=== PATIENT | female | born 1990 | race African-American/Black ===

== ENCOUNTER 2018-11-06 17:59 | Emergency (ER) | payer OTHER ==
[2018-11-06] MEDS ORDERED: DIPHTH,PERTUSS(ACELL),TET 0.5 ML DISP.SYRIN IM ONE ×3 (18:02→18:40)
--- NOTE | 2018-11-06 18:02 | PDOC ---
Rapid Medical Evaluation Time Seen by Provider: 11/06/18 18:01 Medical Evaluation: Allergies Allergy/AdvReac Type Severity Reaction Status Date / Time No Known Allergies Allergy Verified 03/02/14 19:10 11/06/18 18:01 HPI: laceration L middle finger PE: about 1 cm on the volar aspect of the finger. ORDERS: bostrix Discharge Disposition - Diagnosis Laceration - Referrals - Patient Instructions - Post Discharge Activity
[2018-11-06 18:09] VITALS: BP 114/69; PULSE 107; TEMP 98.4; BMI 28.3
--- NOTE | 2018-11-06 19:05 | PDOC ---
History of Present Illness - General Chief Complaint: Injury Stated Complaint: FINGER LACERATION Time Seen by Provider: 11/06/18 18:01 History Source: Patient Exam Limitations: Clinical Condition - History of Present Illness Initial Comments: 11/06/18 19:36 Patient with no significant past medical history present with complaint of laceration to tip of left middle finger status post cooking and accidentally cutting the finger with a knife. Patient does not recall last tetanus vaccine Timing/Duration: 1-3 hours Past History - Past Medical History Allergies/Adverse Reactions: Allergies Allergy/AdvReac Type Severity Reaction Status Date / Time No Known Allergies Allergy Verified 11/06/18 18:09 Home Medications: Ambulatory Orders Cyclobenzaprine HCl [Flexeril -] 10 mg PO TID PRN #10 tablet 03/02/14 Cephalexin Monohydrate [Keflex -] 500 mg PO BID 7 Days #14 capsule 11/06/18 Ibuprofen 800 mg PO Q8H PRN #20 tablet 11/06/18 - Suicide/Smoking/Psychosocial Hx Smoking History: Never smoked Have you smoked in the past 12 months: No Hx Alcohol Use: No Drug/Substance Use Hx: No Substance Use Type: None Review of Systems - Review of Systems Able to Perform ROS?: Yes Is the patient limited Yoruba proficient: No Constitutional: No: Malaise, Weakness HEENTM: No: Symptoms Reported Respiratory: No: Symptoms reported Cardiac (ROS): No: Symptoms Reported Musculoskeletal: Yes: Symptoms Reported, See HPI, Muscle Pain (tip of left middle finger). No: Muscle Weakness Integumentary: Yes: Symptoms Reported, Other (laceration to left middle finger) Neurological: No: Symptoms reported, Numbness, Paresthesia, Tingling All Other Systems: Reviewed and Negative *Physical Exam - Vital Signs Last Vital Signs Temp Pulse Resp BP Pulse Ox 98.4 F 107 H 18 114/69 99 11/06/18 18:06 11/06/18 18:06 11/06/18 18:06 11/06/18 18:06 11/06/18 18:06 - Physical Exam General Appearance: Yes: Nourished, Appropriately Dressed. No: Apparent Distress HEENT: positive: Normal ENT Inspection Respiratory/Chest: negative: Respiratory Distress, Accessory Muscle Use Musculoskeletal: positive: Other (moderate TTP to distal phalange of left middle finger over laceration). negative: Decreased Range of Motion Extremity: positive: Normal Capillary Refill Integumentary: positive: Normal Color, Other (3cm linear laceration with expose subQ tissue to plantar aspect of distal phalange of left middle finger with minimal bleeding) Neurologic: positive: Fully Oriented, Alert, Normal Mood/Affect, Normal Response , Motor Strength 5/5 Procedures - Laceration/Wound Repair Left Anterior Plantar Finger 3rd digit Wound Length: 2.6 to 5.0 cm (3cm) Wound Explored: clean, no foreign body present Wound's Depth, Shape: superficial, linear Irrigated w/ Saline: Yes Betadine Prep: Yes Anesthesia: 1% Lidocaine Amount of Anesthetic (ccs): 2 Wound Repaired With: Sutures Suture Size/Type: 4:0, nylon Number of Sutures: 5 Layer Closure: No Sterile Dressing Applied: Yes Splint Applied: No Sling Applied: No ED Treatment Course - Medications Given in the ED: ED Medications Discontinued Medications Generic Name Dose Route Start Last Admin Trade Name Freq PRN Reason Stop Dose Admin Diphtheria/Tetanus/Acell Pertussis 0.5 ml 11/06/18 18:02 11/06/18 18:37 Boostrix - IM 11/06/18 18:03 0.5 ml .ONCE ONE Administration Medical Decision Making - Medical Decision Making 11/06/18 19:37 Patient with no significant past medical history present with complaint of laceration to tip of left middle finger status post cooking and accidentally cutting the finger with a knife. Patient does not recall last tetanus vaccine Exam significant for 3 cm linear laceration with exposed subcutaneous tissue to distal phalange of left middle finger with minimal bleeding. Wound cleaned with Betadine and infiltrated with 2 mL 1% lidocaine. Wound closed with 5 interrupted sutures. Bacitracin apply to wound. Wound covered with adhesive bandage. Tetanus vaccine given. Patient tolerated procedure well and left from without complication. Patient was discharged home on Keflex antibiotics for week for infection prophylaxis and Motrin as needed for pain. Patient educated on home wound care and advised to follow-up in one week for suture removal *DC/Admit/Observation/Transfer Diagnosis at time of Disposition: Laceration of left middle finger w/o foreign body w/o damage to nail Qualifiers: Encounter type: initial encounter Qualified Code(s): S61.213A - Laceration without foreign body of left middle finger without damage to nail, initial encounter - Discharge Dispostion Disposition: HOME Condition at time of disposition: Stable Decision to Admit order: No - Prescriptions Prescriptions: Cephalexin Monohydrate [Keflex -] 500 mg PO BID 7 Days #14 capsule Ibuprofen 800 mg PO Q8H PRN #20 tablet PRN Reason: pain - Referrals - Patient Instructions Printed Discharge Instructions: DI for Laceration Repair Additional Instructions: Apply bacitracin to wound twice a day on to healed. Keep wound dry and clean for the next 24 hours. Take prescribed medication as prescribed and finish antibiotics. Follow-up in one week for suture removal - Post Discharge Activity
[2018-11-06] MEDS ORDERED: BACITRACIN 15 GM TUBE TOPICAL OINTMENT TP ONE (19:06)
[2018-11-06] MEDS ORDERED: BACITRACIN 15 GM TUBE TOPICAL OINTMENT ONE (19:08)
== END 2018-11-06 19:20 | disposition home or self-care (01) ==
LOC: JERFT 17:59
PROC: 0HQGXZZ Repair Left Hand Skin, External Approach (ICD-10-PCS; principal; 2018-11-06)
PROC: 3E0234Z Introduction of Serum, Toxoid and Vaccine into Muscle, Percutaneous Approach (ICD-10-PCS; 2018-11-06)
DX: S61.213A Laceration without foreign body of left middle finger without damage to nail, initial encounter (principal); W26.0XXA Contact with knife, initial encounter; Y93.G1 Activity, food preparation and clean up; Y92.9 Unspecified place or not applicable
CPT/HCPCS: 90715; 99281-25

== ENCOUNTER 2018-11-20 09:03 | Emergency (ER) | payer OTHER ==
[2018-11-20 09:20] VITALS: BP 102/60; PULSE 69; TEMP 98; BMI 28.3
--- NOTE | 2018-11-20 10:11 | PDOC ---
Suture Removal/Wound Check HPI - History of Present Illness Chief Complaint: Suture/Staple Removal(Here) Stated Complaint: STICHES REMOVAL Time Seen by Provider: 11/20/18 09:21 History Source: Yes: Patient Exam Limitations: Yes: No Limitations Treated at: [facility] ED - Previous ED Treatment Type of procedure performed on last visit: Yes: Laceration Repair Tetanus Immunization: Yes: Up to Date, Given at last ED visit Antibiotics Prescribed: Yes (keflex) Past History - Travel Traveled outside of the country in the last 30 days: No Close contact w/someone who was outside of country & ill: No - Past Medical History Allergies/Adverse Reactions: Allergies Allergy/AdvReac Type Severity Reaction Status Date / Time No Known Allergies Allergy Verified 11/20/18 09:18 Home Medications: Ambulatory Orders Cyclobenzaprine HCl [Flexeril -] 10 mg PO TID PRN #10 tablet 03/02/14 Cephalexin Monohydrate [Keflex -] 500 mg PO BID 7 Days #14 capsule 11/06/18 Ibuprofen 800 mg PO Q8H PRN #20 tablet 11/06/18 COPD: No - Immunization History Immunization Up to Date: Yes - Suicide/Smoking/Psychosocial Hx Smoking History: Current every day smoker Have you smoked in the past 12 months: No Information on smoking cessation initiated: No Hx Alcohol Use: No Drug/Substance Use Hx: No Substance Use Type: None *Physical Exam - Vital Signs Last Vital Signs Temp Pulse Resp BP Pulse Ox 98.0 F 69 18 102/60 100 11/20/18 09:18 11/20/18 09:18 11/20/18 09:18 11/20/18 09:18 11/20/18 09:18 *DC/Admit/Observation/Transfer Diagnosis at time of Disposition: Visit for suture removal - Discharge Dispostion Disposition: HOME Condition at time of disposition: Stable Decision to Admit order: No - Referrals Referrals: Adelso Wilcox MD [Staff Physician] - - Patient Instructions Printed Discharge Instructions: DI for Suture Removal Additional Instructions: You had your sutures/anton removed today. Please use bacitracin on the site for the next week. Avoid soaking the area with water for 1 more week as to what the wound fully heal. Follow-up with her primary care doctor as needed Return to the emergency department if you develop fevers, drainage from the site , increased pain, or have any changes in your symptoms. - Post Discharge Activity Forms/Work/School Notes: Back to Work
== END 2018-11-20 10:17 | disposition home or self-care (01) ==
LOC: JERFT 09:03
DX: Z48.817 Encounter for surgical aftercare following surgery on the skin and subcutaneous tissue (principal); Z48.02 Encounter for removal of sutures
CPT/HCPCS: 99281-25